=== PATIENT | female | born 1985 | race African-American/Black ===

== ENCOUNTER 2016-02-25 18:25 | Emergency (ER) | payer OTHER ==
[~2016-02-25] VITALS: Ht 165.1 cm; Wt 104.3 kg
[2016-02-25 19:36] VITALS: BP 130/68
== END 2016-02-25 19:36 | disposition home or self-care (01) ==
LOC: ER 18:25
DX: Z01.419 Encounter for gynecological examination (general) (routine) without abnormal findings (principal); F10.99 Alcohol use, unspecified with unspecified alcohol-induced disorder

== ENCOUNTER 2017-05-07 03:46 | Emergency (ER) | payer OTHER ==
[~2017-05-07] VITALS: Ht 165.1 cm; Wt 93.0 kg
[~2017-05-07 03:46] MED LIST: BACTRIM DS TAB1 EACH PO; HYDROCODONE-AP1 EAC6 PO
[2017-05-07] MEDS ORDERED: KEFLEX500 M1 PO (04:29)
[2017-05-07] MEDS ORDERED: PREDNISONE 20 M20 MG PO (04:29)
== END 2017-05-07 04:58 | disposition home or self-care (01) ==
LOC: ER 03:46
DX: L03.114 Cellulitis of left upper limb (principal); T63.481A Toxic effect of venom of other arthropod, accidental (unintentional), initial encounter; Y92.89 Other specified places as the place of occurrence of the external cause

== ENCOUNTER 2018-02-17 18:09 | Emergency (ER) | payer OTHER ==
[~2018-02-17] VITALS: Ht 165.1 cm; Wt 86.2 kg
[~2018-02-17 18:09] MED LIST changes: +KEFLEX500 M1 PO; +PREDNISONE 20 M20 MG PO
[2018-02-17] MEDS ORDERED: HYDROCORTISONE30 G9 RECTAL (18:33)
[2018-02-17 18:40] VITALS: BP 127/79
== END 2018-02-17 18:42 | disposition home or self-care (01) ==
LOC: ER 18:09
DX: K64.4 Residual hemorrhoidal skin tags (principal)

== ENCOUNTER 2020-05-02 10:17 | Emergency (ER) | payer OTHER ==
[~2020-05-02] VITALS: Ht 165.1 cm; Wt 88.5 kg
[~2020-05-02 10:17] MED LIST changes: +HYDROCORTISONE30 G9 RECTAL
[2020-05-02] MEDS ORDERED: NYSTATIN15 G1 TOP (11:17)
[2020-05-02 11:24] VITALS: BP 138/82
== END 2020-05-02 11:24 | disposition home or self-care (01) ==
LOC: ER 10:17
DX: R21 Rash and other nonspecific skin eruption (principal)